=== PATIENT | female | born 1950 | race Two or more races ===

== ENCOUNTER 2023-08-30 05:21 | Day surgery (SDC) | payer OTHER ==
[~2023-08-30 05:21] MED LIST: COZAAR50 MG; SYNTHROID50 MCG PO; TRILEPTAL300 MG
[2023-08-30] MEDS ORDERED: METRONIDAZOLE/SODIUM CHLORIDE 500 MG/100 ML PIGGYBACK IV ONE ×2 (06:29→07:45)
[2023-08-30] MEDS ORDERED: CEFTRIAXONE SODIUM 2,000 MG VIAL ONE (06:29)
[2023-08-30] MEDS ORDERED: LIDOCAINE HCL/EPINEPHRINE 10MG/ML 1% 50ML IJ ONE (07:08)
[2023-08-30] MEDS ORDERED: BUPIVACAINE HCL/PF 0.5% 30ML ML ONE (07:08)
[2023-08-30] MEDS ORDERED: POVIDONE-IODINE 118 ML BOTT TOP ONE ×2 (07:30→08:00)
[2023-08-30] MEDS ORDERED: HEMOSTATIC MATRIX 1 KIT KIT TOP ONE ×2 (07:31→08:00)
[2023-08-30] MEDS ORDERED: DIBUCAINE 15 GM OINT..GM. TUBE ONE (07:31)
[2023-08-30] MEDS ORDERED: CEFTRIAXONE SODIUM 2,000 MG VIAL IV ONE (07:45)
[2023-08-30] MEDS ORDERED: LIDOCAINE HCL 1%/Epi 20ML VIAL IJ ONE (07:45)
[2023-08-30] MEDS ORDERED: BUPIVACAINE HCL/PF 0.5% 30ML ML IJ ONE (07:45)
[2023-08-30] MEDS ORDERED: DIBUCAINE 15 GM OINT..GM. TUBE TOP ONE (08:00)
[2023-08-30] MEDS ORDERED: PERCOCET 5-3251 EACH PO (08:21)
[2023-08-30] MEDS ORDERED: RECTICARE30 GM TOP (08:21)
== END 2023-08-30 12:18 | disposition home or self-care (01) ==
LOC: CIR.AMB 05:21
PROVIDERS: ATTEND Surgery
DX: K64.2 Third degree hemorrhoids (principal); K64.4 Residual hemorrhoidal skin tags; K64.8 Other hemorrhoids